=== PATIENT | female | born 1960 | race Native Hawaiian/Other Pacific Islander ===

== ENCOUNTER 2018-10-13 10:08 | Outpatient (CLI) | payer BC | END 2018-10-13 20:20 | disposition home or self-care (01) | LOC: LABW 10:08 | DX: Z79.891 Long term (current) use of opiate analgesic (principal); M54.2 Cervicalgia; M54.12 Radiculopathy, cervical region; M47.812 Spondylosis without myelopathy or radiculopathy, cervical region; M48.02 Spinal stenosis, cervical region; M50.30 Other cervical disc degeneration, unspecified cervical region; Z79.1 Long term (current) use of non-steroidal anti-inflammatories (NSAID) | CPT/HCPCS: 36415; 85002 ==